=== PATIENT | male | born 1935 | race Caucasian/White ===

== ENCOUNTER 2020-08-10 14:47 | Emergency (ER) | payer MEDICARE, OTHER ==
[2020-08-10 14:57] VITALS: BMI 26.2
--- NOTE | 2020-08-10 15:04 | PDOC ---
Rapid Medical Evaluation Chief Complaint: Pain, Acute Time Seen by Provider: 08/10/20 15:00 Medical Evaluation: Allergies Allergy/AdvReac Type Severity Reaction Status Date / Time No Known Drug Allergies Allergy Verified 08/10/20 14:59 Vital Signs Temp Pulse Resp BP Pulse Ox 97.9 F 60 17 179/74 H 100 08/10/20 14:54 08/10/20 14:54 08/10/20 14:54 08/10/20 14:54 08/10/20 14:54 08/10/20 15:02 I performed a brief in-person evaluation of this patient. Pt was sent to the ED by Dr. Ny for an abdominal evaluation. He has been having constipation for the last 4 days. Only past medical history is constipation. No fevers, no chills, no abdominal pain. Pt has chronic low back pain but denies pain at this time. Pertinent physical exam findings: walking without ataxia, no significant abd pain to palpation I have ordered the following: labs, abd xray flat and upright, saline lock Patient to proceed to ED for further evaluation. Discharge Disposition - Diagnosis Constipation - Referrals - Patient Instructions - Post Discharge Activity
--- NOTE | 2020-08-10 15:14 | PDOC ---
History of Present Illness - General Chief Complaint: Pain, Acute Stated Complaint: SENT BY PCP/ABD PAIN Time Seen by Provider: 08/10/20 15:00 - History of Present Illness Initial Comments: 85 YOM h/o bph, abdminal hernia, disk herniation presents from primary care for abdominal pain. Patient reports that he was visiting primary care to discuss lab results, during physical exam, PC pressed on belly causing patient to rapidly te nse his belly. Given concern for acute abdomen PC recommended patient be evaluated in ED. Patient denies nausea, vomiting, diarrhea, chest pain, or shortness of breath, fever or chills. Past History - Medical History Allergies/Adverse Reactions: Allergies Allergy/AdvReac Type Severity Reaction Status Date / Time No Known Drug Allergies Allergy Verified 08/10/20 14:59 Home Medications: Ambulatory Orders No Home Medications 11/05/13 Oxycodone HCl/Acetaminophen [Percocet 5-325 mg Tablet] 1 combo PO Q4H PRN #0 tablet 11/12/13 Anemia: No Asthma: No Cancer: No Cardiac Disorders: No CVA: No COPD: No CHF: No Dementia: No Diabetes: No GI Disorders: Yes (constipation) Disorders: No HTN: No Hypercholesterolemia: No Liver Disease: No Seizures: No Thyroid Disease: No - Surgical History Abdominal Surgery: No Appendectomy: No Cardiac Surgery: No Cholecystectomy: No Lung Surgery: No Neurologic Surgery: No Orthopedic Surgery: No - Psycho-Social/Smoking History Smoking History: Never smoked Have you smoked in the past 12 months: No Information on smoking cessation initiated: No - Substance Abuse Hx (Audit-C & DAST Scrn) How often the patient has a drink containing alcohol: Never Score: In Men: 4 or > Positive; In Women: 3 or > Positive: 0 Screen Result (Pos requires Nsg. Audit-10AR): Negative In the last yr the pt used illegal drug/Rx for NonMed reason: No Score: Yes response is considered Positive: 0 Screen Result (Positive result requires Nsg. DAST-10): Negative Review of Systems - Review of Systems Constitutional: Yes: See HPI HEENTM: Yes: See HPI Respiratory: Yes: See HPI Cardiac (ROS): Yes: See HPI ABD/GI: Yes: See HPI : Yes: See HPI Musculoskeletal: Yes: See HPI Integumentary: Yes: See HPI Neurological: Yes: See HPI Endocrine: Yes: See HPI Hematologic/Lymphatic: Yes: See HPI *Physical Exam - Vital Signs Last Vital Signs Temp Pulse Resp BP Pulse Ox 97.9 F 60 17 179/74 H 100 08/10/20 14:54 08/10/20 14:54 08/10/20 14:54 08/10/20 14:54 08/10/20 14:54 - Physical Exam General Appearance: Yes: Nourished, Appropriately Dressed Respiratory/Chest: positive: Lungs Clear, Normal Breath Sounds Cardiovascular: positive: Regular Rhythm, Regular Rate, S1, S2 Gastrointestinal/Abdominal: positive: Normal Bowel Sounds, Tender, Protuberent, Hernia Musculoskeletal: positive: Other (pain to palpation of lumbosacral region bilaterally ) ED Treatment Course - LABORATORY CBC & Chemistry Diagram: 08/10/20 16:10 08/10/20 16:10 Medical Decision Making - Medical Decision Making 85 YOM h/o bph, abdminal hernia, disk herniation presents from primary care for abdominal pain. Patient reports that he was visiting primary care to discuss lab results, during physical exam, PC pressed on belly causing patient to rapidly tense his belly. Given concern for acute abdomen PC recommended patient be evaluated in ED. Patient denies nausea, vomiting, diarrhea, chest pain, or shortness of breath, fever or chills. Vitals on arrival wnl, Physical exam reveals abdomen diffusely tender to palpation, protuberant with visible hernia along midline, tenderness in lower back bilaterally in lumbosacral region. ddx: mesenteric ischemia, msk pain, diverticulitis, SBO, peritonitis, incarcerated hernia, kidney stone plan: CBC, CMP, lactate, CT abdomen w/o contrast. 08/10/20 16:37 Discharge - Discharge Information Problems reviewed: Yes Clinical Impression/Diagnosis: Constipation - Follow up/Referral Referrals: Walker Moreno MD [Primary Care Provider] - - Patient Discharge Instructions - Post Discharge Activity
[2020-08-10 16:43] LABS: BASO % 0.3 % (0-2.0); EOS % 0.8 % (0-4.5); HEMATOCRIT 38.1 % (35.4-49); HEMOGLOBIN 12.3 GM/dL (11.7-16.9); LYMPH % 48.2 % (8-40); MCH 30.4 pg (25.7-33.7); MCHC 32.2 g/dl (32.0-35.9); MEAN CELL VOLUME 94.3 fl (80-96); MEAN PLT VOLUME 9.5 fl (7.5-11.1); MONO % 7.8 % (3.8-10.2); NEUT % 42.9 % (42.8-82.8); PLATELET COUNT 106 K/MM3 (134-434); RBC 4.04 M/mm3 (4.00-5.60); RDW 15.2 % (11.9-15.9); WHITE BLOOD COUNT 3.6 K/mm3 (4.0-10.0)
[2020-08-10 16:52] LABS: PH,URINE 7.5 (5.0-8.0); URINE APPEARANCE CLEAR; URINE BILIRUBIN NEGATIVE (NEGATIVE); URINE COLOR YELLOW; URINE GLUCOSE (UA) NEGATIVE (NEGATIVE); URINE KETONE NEGATIVE (NEGATIVE); URINE LEUK ESTERASE NEGATIVE (NEGATIVE); URINE NITRITE NEGATIVE (NEGATIVE); URINE PROTEIN NEGATIVE (NEGATIVE)
[2020-08-10 17:07] LABS: ANISOCYTOSIS 1+; MACROCYTOSIS 0; OVALOCYTE 1+; PLATELET ESTIMATE DECREASED
[2020-08-10 17:15] LABS: ALBUMIN 3.7 g/dl (3.4-5.0); BILIRUBIN,TOTAL 0.5 mg/dL (0.2-1); BLOOD UREA NITROGEN 13.9 mg/dL (7-18); CALCIUM 8.7 mg/dL (8.5-10.1); CREATININE 0.9 mg/dL (0.55-1.3); POTASSIUM 4.5 mmol/L (3.5-5.1); TOT PROT 7.3 g/dl (6.4-8.2)
[2020-08-10] MEDS ORDERED: LACTATED RINGERS SOLUTION 1000 ML INFUS.BAG IV ONE (17:25)
--- NOTE | 2020-08-10 17:42 | PDOC ---
Documentation entered by Amber Cortes SCRIBE, acting as scribe for Jazmin Pop DO. Jazmin Pop DO: This documentation has been prepared by the jennyibe, Amber Cortes SCRIBE, under my direction and personally reviewed by me in its entirety. I confirm that the documentation accurately reflects all work, treatment, procedures, and medical decision making performed by me. Attending Attestation - Resident Resident Name: Manfred Aguilera - ED Attending Attestation I have performed the following: I have examined & evaluated the patient, The case was reviewed & discussed with the resident, I agree w/resident's findings & plan, Exceptions are as noted - HPI HPI: 08/10/20 17:06 Patient is an 85 year old male with a significant past medical history of bph, abdminal hernia, and disk herniation, who presents to the ED, from PCP's office, with abdominal pain. Patient denies: fever, chills, nausea, vomiting, SOB, chest pain, diarrhea, or any other related symptoms. - Physicial Exam PE: 08/10/20 17:39 Gen: aaox3, sitting up in nad heart: +s1s2 reg lungs: cta b/l abd: soft, superficial skin ttp, but no ttp to deep palpation back: no midline ttp, paraspinal back ttp that radiates around to the front, no cva ttp ext: no c/c/e - Medical Decision Making 08/10/20 17:40 a/p: 85yo male with back and abd pain sent by his PMD for eval -states the back pain and abd pain are chronic -no assoc n/v/d -last bm was 2 days ago, states he does suffer from constipation -no blood in his stool -labs sent are pending -ct abd/pelvis pending 08/10/20 17:45 labs and ua reviewed and stable 08/10/20 20:10 no acute findings on ct stable for dc to home Heart Score/ECG Review - ECG Intrepretation Comment:: 08/10/20 17:41 sinus maira at 58, 1st degree av block, nl axis, no acute st/t wave findings, q waves septally which are age indeterminate Discharge - Discharge Information Problems reviewed: Yes Clinical Impression/Diagnosis: Constipation, Abdominal pain, Back pain, Prostatic enlargement Condition: Stable Disposition: HOME - Admission No - Follow up/Referral Referrals: Walker Moreno MD [Primary Care Provider] - Jairo Moreno MD [Staff Physician] - - Patient Discharge Instructions Patient Printed Discharge Instructions: DI for Abdominal Pain-Adult, DI for Low Back Pain Additional Instructions: Please take all your medications as prescribed. Please follow up with your PMD and with the urologist. Please return to the ER with any further concerns or complaints. Print Language: THAI - Post Discharge Activity
--- NOTE | 2020-08-10 19:18 | PDOC ---
*Physical Exam - Vital Signs Last Vital Signs Temp Pulse Resp BP Pulse Ox 97.9 F 60 17 179/74 H 100 08/10/20 14:54 08/10/20 14:54 08/10/20 14:54 08/10/20 14:54 08/10/20 14:54 - Physical Exam 08/10/20 19:[address] Aguilera. Pt was sent to ED by PCP when had a "guarding-like" reaction and ttp on ABD. Per Dr. Aguilera, pt can be d/c if CT results unremarkable. ED Treatment Course - LABORATORY CBC & Chemistry Diagram: 08/10/20 16:10 08/10/20 16:10 - ADDITIONAL ORDERS Additional order review: Laboratory Results 08/10/20 08/10/20 08/10/20 16:20 16:10 16:10 Sodium 141 Potassium 4.5 Chloride 109 H Carbon Dioxide 28 Anion Gap 4 L BUN 13.9 Creatinine 0.9 Est GFR (CKD-EPI)AfAm 91.22 Est GFR (CKD-EPI)NonAf 78.71 Random Glucose 91 Lactic Acid 1.6 Calcium 8.7 Total Bilirubin 0.5 AST 28 ALT 29 Alkaline Phosphatase 78 Total Protein 7.3 Albumin 3.7 Lipase 123 Urine Color Yellow Urine Appearance Clear Urine pH 7.5 Ur Specific Wheeler 1.020 Urine Protein Negative Urine Glucose (UA) Negative Urine Ketones Negative Urine Blood Negative Urine Nitrite Negative Urine Bilirubin Negative Urine Urobilinogen 1.0 Ur Leukocyte Esterase Negative 08/10/20 16:10 RBC 4.04 MCV 94.3 MCHC 32.2 RDW 15.2 MPV 9.5 Neutrophils % 42.9 Lymphocytes % 48.2 H D Monocytes % 7.8 Eosinophils % 0.8 Basophils % 0.3 - Medications Given in the ED: ED Medications Discontinued Medications Generic Name Dose Route Start Last Admin Trade Name Freq PRN Reason Stop Dose Admin Lactated Ringer's 1,000 ml 08/10/20 17:25 08/10/20 18:51 Lactated Ringers Solution IV 08/10/20 17:26 1,000 ml ONCE ONE Administration Discharge - Discharge Information Problems reviewed: Yes Clinical Impression/Diagnosis: Back pain, Prostatic enlargement Constipation Qualifiers: Constipation type: unspecified constipation type Qualified Code(s): K59.00 - Constipation, unspecified Abdominal pain Qualifiers: Abdominal location: unspecified location Qualified Code(s): R10.9 - Unspecified abdominal pain Condition: Stable - Admission No - Follow up/Referral Referrals: Walker Moreno MD [Primary Care Provider] - Jairo Moreno MD [Staff Physician] - - Patient Discharge Instructions Patient Printed Discharge Instructions: DI for Low Back Pain, DI for Abdominal Pain-Adult Additional Instructions: Please take all your medications as prescribed. Please follow up with your PMD and with the urologist. Please return to the ER with any further concerns or complaints. Print Language: SWEDISH - Post Discharge Activity
[2020-08-10 22:07] VITALS: BP 162/76; PULSE 61; TEMP 97.8
--- NOTE | 2020-08-11 12:39 | EKG ---
Test Reason : Blood Pressure : / mmHG Vent. Rate : 058 BPM Atrial Rate : 058 BPM P-R Int : 214 ms QRS Dur : 084 ms QT Int : 408 ms P-R-T Axes : -03 003 015 degrees QTc Int : 400 ms SINUS BRADYCARDIA WITH 1ST DEGREE A-V BLOCK SEPTAL INFARCT , AGE UNDETERMINED ABNORMAL ECG NO PREVIOUS ECGS AVAILABLE Confirmed by ARIEL GUZMAN MD ([id number]) on 08/11/2020 12:39:29 PM Referred By: Confirmed By:ARIEL GUZMAN MD
== END 2020-08-10 22:01 | disposition home or self-care (01) ==
LOC: JER 14:47
DX: K59.00 Constipation, unspecified (principal)
CPT/HCPCS: 36415; 74019-TC-FY; 74177-TC; 80053; 81003; 83605; 83690; 85025; 87077; 87086; 93005; 93010; 99285-25; Q9967